=== PATIENT | male | born 1985 | race African-American/Black ===

== ENCOUNTER 2017-01-29 02:18 | Emergency (ER) | payer BC ==
[2017-01-29] MEDS ORDERED: Aspirin 81 MG Tab.Chew PO ONE (02:32)
--- NOTE | 2017-01-29 02:44 | EDM.PDOC ---
ED HISTORY OF PRESENT ILLNESS - General Stated Complaint: CHEST PAIN Time Seen by Provider: 01/29/17 02:35 Source of Information: Reports: Patient History Limitations: Reports: No limitations - History of Present Illness INITIAL COMMENTS - FREE TEXT/NARRATIVE: HISTORY AND PHYSICAL: History of present illness: 31-year-old male now presents emergency department complaining of palpitations earlier tonight and brief episode of pleuritic chest pain with deep inspiration after arrival and the emergency department patient has no history of known cardiac disease. He is not a smoker, no cholesterol /diabetes and has no family history of heart disease. Patient denies exertional pain. He has not been short of breath. No productive cough or fever. Patient is never had a stress test or prior cardiac workup. He states he is under a lot of stress as he has a 1-year- old baby and he and his are getting officially after being together in a common-law marriage for more than 10 years. Review of systems: As per history of present illness and below otherwise all systems reviewed and negative. Past medical history: As per history of present illness and as reviewed below otherwise noncontributory. Surgical history: As per history of present illness and as reviewed below otherwise noncontributory. Social history: No reported history of drug or alcohol abuse. Family history: As per history of present illness and as reviewed below otherwise noncontributory. Physical exam: HEENT: Atraumatic, normocephalic, pupils reactive, negative for conjunctival pallor or scleral icterus, mucous membranes moist, throat clear, neck supple, nontender, trachea midline. Lungs: Clear to auscultation, breath sounds equal bilaterally, chest nontender. Heart: S1S2, regular, negative for clicks, rubs, or JVD. Abdomen: Soft, nondistended, nontender. Negative for masses or hepatosplenomegaly. Negative for costovertebral tenderness. Pelvis: Stable nontender. Genitourinary: Deferred. Rectal: Deferred. Extremities: Atraumatic, negative for cords or calf pain. Neurovascular unremarkable. Neuro: Awake, alert, oriented. Cranial nerves grossly unremarkable. Cerebellum unremarkable. Motor and sensory unremarkable throughout. Exam nonfocal. Diagnostics: [Chest x-ray no acute disease interpreted by me report reviewed EKG normal sinus tachycardia at 105 normal axis no STEMI nonspecific ST findings ] Therapeutics: [Aspirin] Impression: [Palpitations, pleurisy] Plan: [Signs and symptoms consistent with palpitations and pleuritic chest pain which is now resolved. Patient with normal respiratory rate and pulse ox however he is a mild tachycardia. No prior history of hypercoagulability or clot. EKG and chest x-ray negative. Labs unremarkable. CTA of the chest pending to rule out PE. If negative patient agrees with outpatient followup with PCP for reevaluation and referral for outpatient stress test. No further workup or treatment will be indicated and strict return precautions will be given] CT of the chest negative for central PE however suboptimal study peripherally given patient improved and well-appearing d-dimer done at this point which was negative. Given patient's clinical stability resolution tachycardia after IV fluids and pulse in the 70s no further workup or treatment indicated at this time patient agrees with outpatient followup. Definitive disposition and diagnosis as appropriate pending reevaluation and review of above. - Related Data Allergies/ADRs: Allergies Allergy/AdvReac Type Severity Reaction Status Date / Time No Known Allergies Allergy Verified 01/29/17 02:31 Home Meds: Home Meds Lisinopril/Hydrochlorothiazide [Lisinopril-Hctz 10-12.5 mg Tab] 1 tab PO DAILY 01/29/17 [History] Past Medical History - Past Health History Medical/Surgical History: Denies Medical/Surgical History Social & Family History - Family History Family Medical History: Noncontributory - Tobacco Use Smoking Status *Q: Never Smoker Second Hand Smoke Exposure: No - Caffeine Use Caffeine Use: Reports: None - Recreational Drug Use Recreational Drug Use: No ED ROS GENERAL - Review of Systems Review Of Systems: See Below (History of present illness) ED EXAM, GENERAL - Physical Exam Exam: See Below (History of present illness) Course - Vital Signs Last Recorded V/S: Last Vital Signs Temp 36.6 C 01/29/17 02:32 Pulse 78 01/29/17 05:35 Resp 16 01/29/17 05:35 BP 135/69 01/29/17 05:35 Pulse Ox 96 01/29/17 05:35 - Orders/Labs/Meds Orders: Active Orders 24 hr Category Date Time Status EKG Documentation Completion [RC] STAT Care 01/29/17 02:33 Active CTA Chest W WO Contrast [Ang Chest] [CT] Stat Exams 01/29/17 03:25 Taken Chest 1V Frontal [CR] Stat Exams 01/29/17 02:33 Taken Labs: Laboratory Tests 01/29/17 01/29/17 01/29/17 Range/Units 02:25 02:27 02:27 WBC 7.02 (4.0-11.0) K/uL RBC 5.18 (4.50-5.90) M/uL Hgb 15.7 (13.0-17.0) g/dL Hct 47.3 (38.0-50.0) % MCV 91.3 (80.0-98.0) fL MCH 30.3 (27.0-32.0) pg MCHC 33.2 (31.0-37.0) g/dL RDW Std Deviation 44.3 (28.0-62.0) fl RDW Coeff of Duncan 13 (11.0-15.0) % Plt Count 247 (150-400) K/uL MPV 8.90 (7.40-12.00) fL Neut % (Auto) 63.7 (48.0-80.0) % Lymph % (Auto) 25.4 (16.0-40.0) % [place] % (Auto) 10.1 (0.0-15.0) % Eos % (Auto) 0.7 (0.0-7.0) % Baso % (Auto) 0.1 (0.0-1.5) % Neut # (Auto) 4.5 (1.4-5.7) K/uL Lymph # (Auto) 1.8 (0.6-2.4) K/uL [place] # (Auto) 0.7 (0.0-0.8) K/uL Eos # (Auto) 0.1 (0.0-0.7) K/uL Baso # (Auto) 0.0 (0.0-0.1) K/uL Nucleated RBC % 0.0 /100WBC Nucleated RBCs # 0 K/uL D-Dimer, Quantitative 0.26 (0.0-0.52) mg/LFEU Sodium 139 (136-146) mmol/L Potassium 3.8 (3.5-5.1) mmol/L Chloride 104 (98-110) mmol/L Carbon Dioxide 21 (21-31) mmol/L BUN 13 (6.0-23.0) mg/dL Creatinine 1.1 (0.6-1.5) mg/dL Est Cr Clr Drug Dosing 90.14 mL/min Estimated GFR (MDRD) > 60.0 ml/min Glucose 105 (60-110) mg/dL Calcium 9.8 (8.8-10.8) mg/dL Total Bilirubin 0.5 (0.1-1.5) mg/dL AST 19 (5-40) IU/L ALT 26 (8-54) IU/L Alkaline Phosphatase 66 (40-150) Troponin I (0.0-0.29) NG/ML Total Protein 7.6 (6.0-8.0) g/dL Albumin 4.7 (3.5-5.0) g/dL Globulin 2.9 (2.0-3.5) g/dL Albumin/Globulin Ratio 1.6 (1.3-2.8) 01/29/17 Range/Units 02:27 WBC (4.0-11.0) K/uL RBC (4.50-5.90) M/uL Hgb (13.0-17.0) g/dL Hct (38.0-50.0) % MCV (80.0-98.0) fL MCH (27.0-32.0) pg MCHC (31.0-37.0) g/dL RDW Std Deviation (28.0-62.0) fl RDW Coeff of Duncan (11.0-15.0) % Plt Count (150-400) K/uL MPV (7.40-12.00) fL Neut % (Auto) (48.0-80.0) % Lymph % (Auto) (16.0-40.0) % [place] % (Auto) (0.0-15.0) % Eos % (Auto) (0.0-7.0) % Baso % (Auto) (0.0-1.5) % Neut # (Auto) (1.4-5.7) K/uL Lymph # (Auto) (0.6-2.4) K/uL [place] # (Auto) (0.0-0.8) K/uL Eos # (Auto) (0.0-0.7) K/uL Baso # (Auto) (0.0-0.1) K/uL Nucleated RBC % /100WBC Nucleated RBCs # K/uL D-Dimer, Quantitative (0.0-0.52) mg/LFEU Sodium (136-146) mmol/L Potassium (3.5-5.1) mmol/L Chloride (98-110) mmol/L Carbon Dioxide (21-31) mmol/L BUN (6.0-23.0) mg/dL Creatinine (0.6-1.5) mg/dL Est Cr Clr Drug Dosing mL/min Estimated GFR (MDRD) ml/min Glucose (60-110) mg/dL Calcium (8.8-10.8) mg/dL Total Bilirubin (0.1-1.5) mg/dL AST (5-40) IU/L ALT (8-54) IU/L Alkaline Phosphatase (40-150) Troponin I < 0.10 (0.0-0.29) NG/ML Total Protein (6.0-8.0) g/dL Albumin (3.5-5.0) g/dL Globulin (2.0-3.5) g/dL Albumin/Globulin Ratio (1.3-2.8) Meds: Medications Discontinued Medications Generic Name Dose Route Start Last Admin Trade Name Freq PRN Reason Stop Dose Admin Alprazolam 1 mg 01/29/17 04:19 01/29/17 04:33 Xanax PO 01/29/17 04:20 1 mg NOW ONE Administration Aspirin 324 mg 01/29/17 02:32 01/29/17 02:44 Aspirin PO 01/29/17 02:33 324 mg ONETIME ONE Administration Sodium Chloride 1,000 mls @ 999 mls/hr 01/29/17 04:19 01/29/17 04:34 Normal Saline IV 01/29/17 05:19 999 mls/hr .BOLUS ONE Administration Iopamidol 50 ml 01/29/17 04:07 01/29/17 04:07 Isovue Multipack-370 (76%) IVPUSH 01/29/17 04:08 50 ml ONETIME STA Administration Departure - Departure Time of Disposition: 05:46 Disposition: Home, Self-Care 01 Condition: good Clinical Impression: Pleurisy, Palpitations Referrals: PCP,None [Primary Care Provider] - Forms: ED Department Discharge Additional Instructions: Your symptoms and history today are consistent with pleuritic chest pain. This is a result of irritation of the lung lining and it is usually benign.extensive workup today was done to rule out the possibility of a threatening cause for your pleurisy and all results were negative and reassuring. Take Tylenol and Motrin as needed for discomfort and followup with your doctor. Your symptoms of palpitations will require further workup. Followup with your Dr. for reevaluation and to arrange Holter monitoring to rule out possible arrhythmia or irregular heartbeat. Your Dr. can refer you to a pipe setter as needed. Return immediately for new severe or worsening symptoms - My Orders Last 24 Hours: My Active Orders 01/29/17 02:33 EKG Documentation Completion [RC] STAT Chest 1V Frontal [CR] Stat 01/29/17 03:25 CTA Chest W WO Contrast [Ang Chest] [CT] Stat - Assessment/Plan Last 24 Hours: My Active Orders 01/29/17 02:33 EKG Documentation Completion [RC] STAT Chest 1V Frontal [CR] Stat 01/29/17 03:25 CTA Chest W WO Contrast [Ang Chest] [CT] Stat
[2017-01-29 02:57] LABS: CHLORIDE,CL 104 mmol/L (98-110); SODIUM,NA 139 mmol/L (136-146)
[2017-01-29] MEDS ORDERED: Iopamidol 755 MG/ML 500 ML Multipack Bottle IVPUSH STA (04:07)
[2017-01-29] MEDS ORDERED: Sodium Chloride 0.9% 1,000 ML IV ONE (04:19)
[2017-01-29] MEDS ORDERED: ALPRAZolam 0.5 MG Tab PO ONE (04:19)
[2017-01-29 06:09] VITALS: BP 130/78
--- NOTE | 2017-01-29 15:57 | CR ---
EXAM DATE: 01/29/17 PATIENT'S AGE: 31 Patient: SAMPSON BRITTON Facility: [place], [place] Site . Site : 1985 Study: XRay Chest [id number]/4/[id number] 2:38:10 AM Ordering Physician: Enrique Hanley Final Report: INDICATION: Chest pain TECHNIQUE: Chest 1 view. COMPARISON: None FINDINGS: Cardiovascular and mediastinum: Heart size and vasculature are normal in caliber and appearance. Mediastinum is within normal limits. Lungs and pleural space: Lungs are clear. No sign of infiltrate. Probable 5 millimeter calcified granuloma left lower lobe. No sign of pleural effusion. No pneumothorax. Bones and soft tissues: No significant findings. IMPRESSION: Unremarkable chest. Dictated by Will Olivia MD @ 01/29/2017 2:48:52 AM Dictated by: Will Olivia MD @ 01/29/2017 02:48:56 (Electronic Signature) Report Signed by Proxy. PALOMA
--- NOTE | 2017-01-29 15:58 | CT ---
EXAM DATE: 01/29/17 PATIENT'S AGE: 31 Patient: SAMPSON BRITTON Facility: [place], [place] Site . Site : 1985 Study: CT Chest Angio [id number]/4/2017 4:03:35 AM Ordering Physician: Enrique Hanley Final Report: INDICATION: Tachycardia and pleuritic chest pain TECHNIQUE: CT chest pulmonary angiogram acquired with IV contrast. 50 cc Isovue 370 COMPARISON: None FINDINGS: Cardiovascular structures: Limited evaluation of the pulmonary arteries due to suboptimal opacification. Grossly normal main pulmonary arteries. Heart size is normal. No sign of aneurysm or dissection in the thoracic aorta. Mediastinum and parrish: No mass or adenopathy. Lungs: Clear. Pleura and pericardium: No effusions. Chest wall and axilla: No mass or adenopathy. Bones: No significant findings. Upper abdomen: Unremarkable. IMPRESSION: Limited evaluation of the pulmonary arteries due to suboptimal opacification. No evidence of pulmonary embolus involving the central pulmonary arteries. The peripheral vessels are not well opacified. No infiltrates. Normal thoracic aorta. Dictated by Will Olivia MD @ 01/29/2017 4:11:59 AM Dictated by: Will Olivia MD @ 01/29/2017 04:12:03 (Electronic Signature) Report Signed by Proxy. [facility]
== END 2017-01-29 06:08 | disposition home or self-care (01) ==
LOC: MW.ED 02:18
DX: R09.1 Pleurisy (principal); R00.2 Palpitations; Z79.899 Other long term (current) drug therapy
CPT/HCPCS: 36415; 71010; 71275; 80053; 84484; 85025; 85379; 93005; 96360; 99285; A9270; J7040; Q9967; 99284

== ENCOUNTER → 2017-01-30 | Outpatient (CLI) | payer BC | LOC: MW.CHFP 13:40 | PROVIDERS: ATTEND Family Medicine | DX: R00.2 Palpitations (principal); R07.9 Chest pain, unspecified | CPT/HCPCS: 36415; 80061; 84443 ==